=== PATIENT | male | born 1985 | race Two or more races ===

== ENCOUNTER 2022-01-25 00:22 | Emergency (ER) | payer SELFPAY ==
[~2022-01-25] VITALS: Ht 185.4 cm; Wt 86.2 kg
[2022-01-25] MEDS ORDERED: IV NORMAL SALINE 1000 ML BAG IV ONE (00:45)
[2022-01-25] MEDS ORDERED: THIAMINE HCL 200 MG/2 ML VIAL IV ONE (00:45)
[2022-01-25] MEDS ORDERED: FOLIC ACID 5 MG/ML VIAL IV ONE ×2 (00:45→01:40)
[2022-01-25] MEDS: MAGNESIUM SULFATE/D5W 100 ML IV SCH ×6 (00:45→03:00)
[2022-01-25] MEDS ORDERED: HALOPERIDOL LACTATE 5 MG/1 ML VIAL ONE (00:50)
[2022-01-25] MEDS ORDERED: LORAZEPAM 2 MG/1 ML VIAL ONE (00:50)
[2022-01-25] MEDS ORDERED: diphenhydrAMINE 50 MG/1 ML VIAL ONE (00:51)
[2022-01-25] MEDS ORDERED: MAGNESIUM SULFATE/D5W 100 ML ONE ×2 (01:41→02:34)
[2022-01-25] MEDS ORDERED: THIAMINE HCL 200 MG/2 ML VIAL ONE (01:42)
[2022-01-25] MEDS ORDERED: MVI-12 10 ML ONE (01:43)
[2022-01-25 01:53] LABS: HEMATOCRIT 40.7 % (36.7-47.1); MEAN CORPUSCULAR HEMOGLOBIN 28.1 uug (23.8-33.4); MEAN CORPUSCULAR VOLUME 85.5 fL (73.0-96.2); PLATELET COUNT (AUTO) 208 K/uL (152-348)
[2022-01-25 02:03] LABS: ETHANOL 136 MG/DL (0-0)
[2022-01-25 02:07] LABS: ALANINE AMINOTRANSFERASE 44 U/L (16-63); ALKALINE PHOSPHATASE 70 U/L (50-136); ASPARTATE AMINOTRANSFERASE 38 U/L (15-37); BILIRUBIN,TOTAL 0.1 mg/dL (0.2-1.0); CARBON DIOXIDE 27 mmol/L (21-32); CHLORIDE 105 mmol/L (98-107); CREATININE 1.1 mg/dL (0.6-1.3); GLUCOSE 123 mg/dL (74-106); POTASSIUM 3.6 mmol/L (3.5-5.1); TOTAL PROTEIN, SERUM 7.4 g/dL (6.4-8.2); UREA NITROGEN, BLOOD 26 mg/dL (7-18)
[2022-01-25 02:16] LABS: BILIRUBIN,DIRECT < 0.1 mg/dL (0.0-0.2)
--- NOTE | 2022-01-25 02:46 | NUR ---
pt assisted by this RN and ENVIRONMENTAL HEALTH PHYSICIAN Carley and Security Calderon to stand up and use a urinal.
--- NOTE | 2022-01-25 03:02 | NUR ---
clarification on Magnesium IV. Total volume administered 200 ml, for 2gm of Mag. IV spreadsheet documentation was doubled.
[2022-01-25 03:24] LABS: *BILIRUBIN,URIN NEGATIVE (NEGATIVE); *BLOOD, URINE NEGATIVE (NEGATIVE); *CLARITY,URINE CLEAR (CLEAR); *COLOR,URINE YELLOW (YELLOW); *KETONES,URINE NEGATIVE (NEGATIVE); *UROBILINOGEN,URINE 0.2 E.U./dl (NORMAL); LEUKOCYTE ESTERASE ,URINE NEGATIVE (NEGATIVE); NITRITE, URINE NEGATIVE (NEGATIVE); PH,URINE 6.5 (5.0-8.0); UGLUCOSE NEGATIVE (NEGATIVE)
[2022-01-25] MEDS ORDERED: diphenhydrAMINE 50 MG/1 ML VIAL IM ONE (03:30)
[2022-01-25] MEDS ORDERED: HALOPERIDOL LACTATE 5 MG/1 ML VIAL IM ONE (03:30)
[2022-01-25] MEDS ORDERED: LORAZEPAM 2 MG/1 ML VIAL IM ONE (03:30)
[2022-01-25 03:48] LABS: *AMPHETAMINE, URINE NEGATIVE (NEGATIVE); *CANNABINOID, URINE NEGATIVE (NEGATIVE); *COCCAINE, URINE NEGATIVE (NEGATIVE); *PHENCYCLIDINE SCREEN,URINE NEGATIVE (NEGATIVE)
--- NOTE | 2022-01-25 05:00 | NUR ---
Pt transferred to bed 4A.
--- NOTE | 2022-01-25 07:33 | NUR ---
report given to Rn-Aron prescott.
--- NOTE | 2022-01-25 07:51 | NUR ---
Pt able to walk w/ steady gait. DR Almaraz made aware.
--- NOTE | 2022-01-25 08:00 | NUR ---
Breakfast tray provided.
--- NOTE | 2022-01-25 08:10 | NUR ---
Patient discharged to home in stable condition. Written and verbal after care instructions given. Pt refused to sign d/d paperwork. Patient verbalizes understanding of instructions. Discuss/educate pt regarding not driving while intoxicated. Pt walked out of ER w/ steady gait.
[2022-01-25 08:24] VITALS: BP 117/61
== END 2022-01-25 08:24 | disposition home or self-care (01) ==
LOC: ER 00:56
DX: F10.129 Alcohol abuse with intoxication, unspecified (principal); Y90.6 Blood alcohol level of 120-199 mg/100 ml; M62.82 Rhabdomyolysis; R94.31 Abnormal electrocardiogram [ECG] [EKG]
CPT/HCPCS: 80076; 80048; 81003; 82550; 85025; 36415; 93005; 99284; 96365; 96366; 96375; 96372; 80320; 80307; J1200; J3490 ×2; J1630; J2060; J3475 ×2; J3411; J7040; A4663; G0480